=== PATIENT | male | born 1980 | race Two or more races ===

== ENCOUNTER 2016-12-26 19:52 | Emergency (ER) | payer MEDICAID ==
[~2016-12-26] VITALS: Ht 170.2 cm; Wt 72.6 kg
[2016-12-26 20:03] VITALS: BP 141/78
[2016-12-26] MEDS ORDERED: HYDROcodone-ACET 5/325MG TAB PO ONE (23:45)
== END 2016-12-27 00:08 | disposition home or self-care (01) ==
LOC: ER 19:54
DX: S02.651A Fracture of angle of right mandible, initial encounter for closed fracture (principal); F12.10 Cannabis abuse, uncomplicated; Y08.89XA Assault by other specified means, initial encounter; Y93.89 Activity, other specified; Y99.8 Other external cause status; Y92.89 Other specified places as the place of occurrence of the external cause
CPT/HCPCS: 70486

== ENCOUNTER 2018-01-26 21:51 | Emergency (ER) | payer MEDICAID, OTHER ==
[~2018-01-26] VITALS: Ht 170.2 cm; Wt 68.0 kg
[2018-01-26 22:41] VITALS: BP 119/60
== END 2018-01-27 01:16 | disposition home or self-care (01) ==
LOC: ER 21:51
DX: S01.511A Laceration without foreign body of lip, initial encounter (principal); W22.8XXA Striking against or struck by other objects, initial encounter; Y93.89 Activity, other specified; Y99.8 Other external cause status; Y92.89 Other specified places as the place of occurrence of the external cause
CPT/HCPCS: 12011

== ENCOUNTER 2020-04-08 16:15 | Emergency (ER) | payer MEDICAID, OTHER ==
[~2020-04-08] VITALS: Ht 172.7 cm; Wt 68.0 kg
[2020-04-08 17:00] VITALS: BP 157/89
[2020-04-08] MEDS ORDERED: LIDOCAINE 1% HCL (LOCAL ANESTH.) INJ 20ML MDV ID ONE (17:45)
== END 2020-04-08 17:59 | disposition home or self-care (01) ==
LOC: ER 16:15
DX: S01.01XA Laceration without foreign body of scalp, initial encounter (principal); Y08.89XA Assault by other specified means, initial encounter; Y93.89 Activity, other specified; Y92.89 Other specified places as the place of occurrence of the external cause; Y99.8 Other external cause status
CPT/HCPCS: 12002

== ENCOUNTER 2021-05-25 01:42 | Emergency (ER) | payer MEDICAID ==
[~2021-05-25] VITALS: Ht 170.2 cm; Wt 86.2 kg
[2021-05-25 03:30] VITALS: BP 129/86
[2021-05-25] MEDS ORDERED: KETOROLAC TROMETH 60MG/2ML VIAL IM ONE (03:30)
[2021-05-25] MEDS ORDERED: methylPREDNISolone SOD SUCC 125 MG/2 ML VL IM ONE (03:30)
== END 2021-05-25 04:26 | disposition home or self-care (01) ==
LOC: ER 01:44
DX: S69.91XA Unspecified injury of right wrist, hand and finger(s), initial encounter (principal); Y04.2XXA Assault by strike against or bumped into by another person, initial encounter; Y93.89 Activity, other specified; Y92.89 Other specified places as the place of occurrence of the external cause; Y99.8 Other external cause status
CPT/HCPCS: 73130; 96372; 99284; J1885; J2930

== ENCOUNTER 2021-10-31 14:56 | Emergency (ER) | payer MEDICAID ==
[~2021-10-31] VITALS: Ht 170.2 cm; Wt 77.1 kg
[2021-10-31 15:19] VITALS: BP 147/91
[2021-10-31] MEDS ORDERED: IBUP800T27 PO (17:18)
[2021-10-31] MEDS ORDERED: DOXY-286 PO (17:18)
== END 2021-10-31 17:39 | disposition home or self-care (01) ==
LOC: ER 14:56
DX: S20.211A Contusion of right front wall of thorax, initial encounter (principal); J18.9 Pneumonia, unspecified organism; F17.210 Nicotine dependence, cigarettes, uncomplicated; Z79.1 Long term (current) use of non-steroidal anti-inflammatories (NSAID); Z79.2 Long term (current) use of antibiotics; V86.56XA Driver of dirt bike or motor/cross bike injured in nontraffic accident, initial encounter; Y93.89 Activity, other specified; Y92.89 Other specified places as the place of occurrence of the external cause; Y99.8 Other external cause status
CPT/HCPCS: 71250

== ENCOUNTER 2025-03-20 03:51 | Emergency (ER) | payer MEDICAID ==
[~2025-03-20] VITALS: Ht 172.7 cm; Wt 82.0 kg
[~2025-03-20 03:51] MED LIST: DOXY-286 PO; IBUP-1456 PO
[2025-03-20] MEDS ORDERED: CLIN1CAP70 PO (05:20)
--- NOTE | 2025-03-20 05:21 | ED.PDOC ---
Eye-HPI HPI Comments 44-year-old male presents to ER with complaints of toothache pain x1 week. Patient reports he has been experiencing left upper toothache pain x1 week with associated left-sided facial swelling x1 day. He rates his current left upper toothache pain a 4/10 with radiation towards the left side of face. Reports that he followed up with a dentist three days ago and was prescribed amoxicillin that he has been taking as prescribed and notes he has a follow up appointment with his dentist on Monday of this week. Patient presents to ER ambulatory on arrival, with steady gait, in no distress with mild left-sided facial swelling noted. Denies fever, body aches, chills, headache, nausea/vomiting or any further symptoms/complaints Chief Complaint: Tooth Pain Time Seen by MD: 04:05 Primary Care Provider: unknown Reviewed Notes: Nurses Notes, Medications, Allergies Allergies: Coded Allergies: NO KNOWN ALLERGIES (Unverified , 03/25/15) Home Meds Active Scripts Clindamycin Hcl (Clindamycin Hcl) 300 Mg Cap, 300 MG PO QID for 7 Days, #28 CAP 0 Refills Prov:MARIA DOLORES GARRIDO 03/20/25 Ibuprofen (Ibuprofen) 800 Mg Tab, 1 TAB PO TID PRN, #30 TAB 0 Refills Prov:MARIA DOLORES GARRIDO 10/31/21 Doxycycline Hyclate (DOXYCYCLINE HYCLATE) 100 Mg Tab, 1 TAB PO BID for 7 Days, #14 TAB 0 Refills Prov:MARIA DOLORES GARRIDO 10/31/21 Information Source: Patient Mode of Arrival: Ambulatory Past Medical History PAST MEDICAL HISTORY: Denies Surgical History: Denies all surgeries Family History Family History: Unknown Social History Smoker: Cigarettes, Less Than 1 Pack/Day Alcohol: Denies ETOH Use Drugs: Marijuana Lives In: Home Constitutional: denies: chills, diaphoresis, fatigue, fever, malaise, sweats, weakness, others EENTM: reports: others (As stated in HPI) Respiratory: denies: cough, hemoptysis, orthopnea, SOB at rest, shortness of breath, SOB with excertion, stridor, wheezing, others Cardiovascular: denies: chest pain, dizzy spells, diaphoresis, Dyspnea on exertion, edema, irregular heart beat, left arm pain, lightheadedness, palpitations, PND, syncope, others Gastrointestinal: denies: abdomen distended, abdominal pain, blood streaked bowels, constipated, diarrhea, dysphagia, difficulty swallowing, hematemesis, melena, nausea, poor appetite, poor fluid intake, rectal bleeding, rectal pain, vomiting, others Genitourinary: denies: burning, dysuria, flank pain, frequency, hematuria, incontinence, penile discharge, penile sore, pain, testicle pain, testicle swelling, urgency, others Neurological: denies: dizziness, fainting, headache, left sided numbness, left sided weakness, numbness, paresthesia, pre-existing deficit, right sided numbness, right sided weakness, seizure, speech problems, tingling, tremors, weakness, others Musculoskeletal: denies: back pain, gout, joint pain, joint swelling, muscle pain, muscle stiffness, neck pain, others Integumetry: reports: others (As stated in HPI) Allergic/Immunocompromised: denies: Difficulty Healing, Frequent Infections, Hives, Itching, others Hematologic/Lymphatic: denies: anemia, blood clots, easy bleeding, easy bruising, swollen glands, others Endocrine: denies: excessive hunger, excessive sweating, excessive thirst, excessive urination, flushing, intolerance to cold, intolerance to heat, unexplained weight gain, unexplained weight loss, others Psychiatric: denies: anxiety, bipolar disorder, depression, hopeless, panic disorder, schizophrenia, sleepless, suicidal, others Physical Exam General Appearance: No Apparent Distress HEENT: PERRL/EOMI, Pharynx Normal, TMs Normal, Other (Mild swelling/erythema noted surrounding gums of tooth #13 without bleeidng/drainage. Mild left-sided facial swelling also noted. 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 Was a procedure done?: No Sedation Sedation?: No EENT DIFF Eye: N/A Mouth: Thrush, Other (dental abscess, Kartik's angina) X-Ray, Labs, Meds, VS Vital Signs Date Time Temp Pulse Resp B/P (MAP) Pulse Ox O2 Delivery O2 Flow Rate FiO2 03/20/25 03:52 98.1 86 18 157/94 96 98.1 Hep-Lock IV ordered Rocephin 1 g IV ordered Clindamycin 900 mg IV ordered Patient had improvement in symptoms, afebrile and in no distress prior to discharge Smoking/cannabis cessation discussed and advised Advised to discontinue amoxicillin and take the following antibiotics below as prescribed Advised to follow up with PCP and dentist in 1-2 days Patient verbalized understanding and agreeable with current plan of care Advised to return to ER immediately if symptoms worsen Time of 1ST Reevaluation: 05:04 Reevaluation 1ST: N/A Patient Education/Counseling: Diagnosis, Treatment, Prognosis, Need For Follow Up Family Education/Counseling: No Family Present SEPSIS Sepsis Screen Date sepsis recognized/suspect: Mar 20, 2025 Time Sepsis recognized/suspect: 355 Recent Procedure: No On Antibiotic Therapy: No Respiratory Rate >20: No Heart Rate >90: No Temp<36 C (96.8 F) or >38.3 C: No SBP <90 or MAP <65 mmHG: No New Acute Mental Status Change: No Is the patient on CPAP, BIPAP,: No Physician Orders Heplock Iv (03/20/25 ) Ceftriaxone 1gm/50ml D5w (Rocephin) (03/20/25 05:30) Clindamycin 900mg Iv (Cleocin Iv) (03/20/25 05:30) Vital Signs Date Time Temp Pulse Resp B/P (MAP) Pulse Ox O2 Delivery O2 Flow Rate FiO2 03/20/25 03:52 98.1 86 18 157/94 96 98.1 Departure 1 Departure Time of Disposition: 05:20 Impression: Primary Impression: Dental infection Disposition: HOME / SELF CARE / HOMELESS Condition: Stable e-Prescriptions Clindamycin Hcl (Clindamycin Hcl) 300 Mg Cap 300 MG PO QID for 7 Days, #28 CAP 0 Refills Prov: MARIA DOLORES GARRIDO 03/20/25 Discharged With: Self Critical Care Note Critical Care Time?: No Stability Stability form required: No Heart Score Heart Score: Heart Score Response (Comments) Value History N/A 0 EKG N/A 0 Age N/A 0 Risk Factors N/A 0 Troponin N/A 0 Total 0 MARIA DOLORES GARRIDO Mar 20, 2025 05:21
[2025-03-20 07:30] VITALS: BP 146/90; PULSE 80; RESP 18; TEMP 98.6; O2SAT 97
[2025-03-20] MEDS: CLINDAMYCIN 900MG IV 50 ML IV ONE (07:46)
[2025-03-20] MEDS: cefTRIAXone 1GM/50ML D5W 50 ML IV ONE (07:46)
== END 2025-03-20 08:27 | disposition home or self-care (01) ==
LOC: ER 03:51
DX: K04.7 Periapical abscess without sinus (principal); F17.210 Nicotine dependence, cigarettes, uncomplicated; Z79.899 Other long term (current) drug therapy
CPT/HCPCS: 96365; 96368; 99284; J0696; J3490

== ENCOUNTER 2025-05-26 08:33 | Emergency (ER) | payer MEDICAID ==
[~2025-05-26] VITALS: Ht 175.3 cm; Wt 86.2 kg
[~2025-05-26 08:33] MED LIST changes: +CLIN1CAP70 PO
--- NOTE | 2025-05-26 10:12 | DVH ---
Right lower extremity venous duplex Clinical History: pain Comparison: None Technique: Duplex Doppler evaluation of the deep venous system of the right lower extremity from the common femo ral vein to the popliteal vein including color Doppler and spectral/pulsed waveform analysis was perf ormed. Findings: The common femoral vein demonstrates appropriate compressibility and waveform variability. There is compressibility/patency of the great saphenous vein at the proximal thigh. The femoral vein demonstrates appropriate compressibility and waveform variability. The deep femoral vein demonstrates appropriate compressibility and waveform variability. The popliteal vein demonstrates appropriate compressibility and waveform variability. There is normal compressibility at the tibioperoneal trunk. Impression: No right femoropopliteal venous thrombosis.
--- NOTE | 2025-05-26 10:13 | DVH ---
CLINICAL INDICATION: Pain TECHNIQUE: XY R TIB FIB XRAY Comparison: None FINDINGS/IMPRESSION: : There is no evidence of acute fracture or dislocation. Soft tissues are unremarkable. Postsurgical and/or posttraumatic changes of the distal tibia and fibula.
[2025-05-26] MEDS ORDERED: NAPR-746 PO (10:33)
--- NOTE | 2025-05-26 10:33 | ED.PDOC ---
Musculoskeletal HPI Comments This is a pleasant 44-year-old male with a MHx that presents with a chief complaint of atraumatic right leg pain and swelling described as a pressure sensation and discomfort throughout the leg that began on Monday while at rest and has persisted since The patient reports he has a history of a right leg fracture involving the tibia and fibula from a proximally two years ago Patient admits the pain does improve with elevation which helps reduce the swelling however the leg pain is currently swollen and rated as moderate despite the patient taking [id number] ibuprofen Denies any chest pain shortness of breath. Chief Complaint: Lower Extremity Time Seen by MD: 08:49 Primary Care Provider: unknown Reviewed Notes: Nurses Notes, Medications, Allergies Allergies: Coded Allergies: NO KNOWN ALLERGIES (Unverified , 03/25/15) Home Meds Active Scripts Clindamycin Hcl (Clindamycin Hcl) 300 Mg Cap, 300 MG PO QID for 7 Days, #28 CAP 0 Refills Prov:MARIA DOLORES GARRIDO 03/20/25 Ibuprofen (Ibuprofen) 800 Mg Tab, 1 TAB PO TID PRN, #30 TAB 0 Refills Prov:MARIA DOLORES GARRIDO 10/31/21 Doxycycline Hyclate (DOXYCYCLINE HYCLATE) 100 Mg Tab, 1 TAB PO BID for 7 Days, #14 TAB 0 Refills Prov:MARIA DOLORES GARRIDO 10/31/21 Information Source: Patient Mode of Arrival: Ambulatory Past Medical History PAST MEDICAL HISTORY: Denies Surgical History: Denies all surgeries Family History Family History: Unknown Social History Smoker: Cigarettes, Less Than 1 Pack/Day Alcohol: Denies ETOH Use Drugs: Marijuana Lives In: Home All Other Systems: Reviewed and Negative (Per HPI) Physical Exam General Appearance: No Apparent Distress, Normal HEENT: Normal ENT Inspection, Pharynx Normal, TMs Normal Neck: Full Range of Motion, Non-Tender, Normal, Normal Inspection Respiratory: Chest Non-Tender, Lungs Clear, No Accessory Muscle Use, No Respiratory Distress, Normal Breath Sounds Cardiovascular: No Edema, No JVD, No Murmur, No Gallop, Normal Peripheral Pulses, Regular Rate/Rhythm Breast Exam: Deferred Gastrointestinal: No Organomegaly, Non Tender, No Pulsatile Mass, Normal Bowel Sounds, Soft Genitalia: Deferred Pelvic: Deferred Rectal: Deferred Extremities: No calf tenderness, Normal capillary refill, Normal inspection, Normal range of motion, Non-tender, No pedal edema Musculoskeletal : Apperance: Normal Neurologic: Alert, 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 Was a procedure done?: No Images 1 - Localized swelling to the right lower leg. Warmth to touch. No erythema. No crepitus. No fluctuance. No streaking. DP 2+. Full range of motion of the knee ankle. Neurovascular sensation intact Differential Diagnosis EXT Differential Diagnosis: Deep Vein Thrombosis, Fracture, Sprain, Strain, Arthritis, Bursitis X-Ray, Labs, Meds, VS Vital Signs Date Time Temp Pulse Resp B/P (MAP) Pulse Ox O2 Delivery O2 Flow Rate FiO2 05/26/25 08:34 98.7 98 16 138/85 100 98.7 X-Ray, Labs, Meds, VS Comment The patient presents with signs and symptoms concerning for deep venous thrombosis. The differential diagnosis includes but is not limited to: DVT, thrombophlebitis, trauma, venous stasis, peripheral edema, cellulitis. Patients work up was negative for any acute findings. DVT was negative. X-ray was reassuring. The patient was overall stable while in the ED. They had normal oxygenation on room air and did not require any supplemental oxygen. Heart rate has remained stable while in the ED. Nontoxic appearing. No lymphangitic spread visible. No fluid pockets or fluctuance concerning for abscess. Low concern for cellulitis or osteomyelitis. No evidence of phlegmasia cerulea or alba dolens. Focal and unilateral nature not consistent with heart failure. Patient is stable for discharge at this time. External notes reviewed. Test results and diagnostic imaging interpreted. All diagnostic findings, discharge care, education and instructions provided Follow-up with PCP in 2 to 3 days Meanwhile the patient will be started on anti-inflammatories for pain and inflammation. Rice was discussed Patient verbalized understanding and agreed to treatment plan Vital signs stable, afebrile, no acute distress noted Patient ambulatory with strong steady gait Advised to return precautions for any new or worsening symptoms, return to ER immediately for re-evaluation Patient is aware that the purpose of this visit was for an acute medical emergency requiring emergent stabilization. Chronic conditions, including malignancies have not been ruled out. Patient is instructed to follow up with PCP as directed and discharge instructions for continued care and workup. If unable to arrange follow-up, patient is to return to the emergency department for reassessment. Patient (parent or legal guardian if applicable) was given verbal and written discharge instructions and acknowledges understanding. Time of 1ST Reevaluation: 10:31 Reevaluation 1ST: Improved Patient Education/Counseling: Diagnosis, Treatment Family Education/Counseling: Diagnosis, Treatment Departure 1 Departure Time of Disposition: 10:32 Impression: Primary Impression: Right leg pain Disposition: HOME / SELF CARE / HOMELESS Condition: Fair e-Prescriptions Naproxen (Naproxen) 500 Mg Tab 500 MG PO BIDPC for 10 Days, #20 TAB 0 Refills Prov: RICHIE WELLER NP 05/26/25 Discharged With: Self Critical Care Note Critical Care Time?: No Stability Stability form required: No Heart Score Heart Score: Heart Score Response (Comments) Value History N/A 0 EKG N/A 0 Age N/A 0 Risk Factors N/A 0 Troponin N/A 0 Total 0 RICHIE WELLER NP May 26, 2025 10:33
[2025-05-26 10:44] VITALS: BP 128/82; PULSE 94; RESP 17; TEMP 98.6; O2SAT 100
== END 2025-05-26 10:47 | disposition home or self-care (01) ==
LOC: ER 08:33
DX: M79.604 Pain in right leg (principal); M79.89 Other specified soft tissue disorders; F17.210 Nicotine dependence, cigarettes, uncomplicated
CPT/HCPCS: 73590; 93971